=== PATIENT | male | born 2000 | race Caucasian/White ===

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

== ENCOUNTER 2020-08-26 13:25 | Emergency (ER) | payer OTHER, BC ==
[2020-08-26 13:52] VITALS: BP 127/71; PULSE 89
[2020-08-26] MEDS ORDERED: Diphtheria,Pertussis(Acell),Tetanus Vaccine 0.5 ML Syringe IM ONE (14:17)
--- NOTE | 2020-08-26 14:28 | EDM.PDOC ---
ED HPI GENERAL MEDICAL PROBLEM - General Chief Complaint: Bite:Animal, Insect Stated Complaint: DOG BITE AT WORK Time Seen by Provider: 08/26/20 13:28 Source of Information: Reports: Patient History Limitations: Reports: No Limitations - History of Present Illness INITIAL COMMENTS - FREE TEXT/NARRATIVE: HISTORY AND PHYSICAL: History of present illness: Patient is a 19-year-old male who presents to the emergency department secondary to a dog bite on the right leg he sustained approximately 1 hour ago. 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 Patient reports that the dog did bite him on the right calf. Patient reports that he believes he is up-to-date on his immunizations but cannot quite recall receiving any vaccinations in the last couple years. Per law enforcement at bedside, the dog is up-to-date on rabies vaccine. Denies any other symptoms or concerns. Patient denies fever, chills, chest pain, shortness of breath, or cough. Denies headache, neck stiff ness, change in vision, syncope, or near syncope. Denies nausea, vomiting, abdominal pain, diarrhea, constipation, or dysuria. Has not noted any blood in urine or stool. Patient has been eating and drinking appropriately. Review of systems: As per history of present illness and below otherwise all systems reviewed and negative. Past medical history: As per history of present illness and as reviewed below otherwise noncontributory. Surgical history: As per history of present illness and as reviewed below otherwise noncontri butory. Social history: See social history for further information Family history: As per history of present illness and as reviewed below otherwise noncontributory. Physical exam: General: Patient is alert, oriented, and in no acute distress. Patient sitting comfortably on exam table. Vitals stable and reviewed by me HEENT: Atraumatic, normocephalic, pupils equal and reactive bilaterally, n egative for conjunctival pallor or scleral icterus, mucous membranes moist, TMs normal bilaterally, throat clear, neck supple, nontender, trachea midline. No drooling or trismus noted. No meningeal signs. No hot potato voice noted. Lungs: Clear to auscultation, breath sounds equal bilaterally, chest nontender. Heart: S1S2, regular rate and rhythm without overt murmur Abdomen: Soft, nondistended, nontender. Negative for masses or hepatosplenomegaly. Negative for costovertebral tenderness. Pelvis: Stable nontender. Genitourinary: Deferred. Rectal: Deferred. Skin: Intact, warm, dry. No lesions or rashes noted. Extremities: There is a 0.5 cm superficial laceration of the right medial mid lower right leg with hemostasis. Patient has full range of motion of the complete right lower extremity without pain or deficit. Intact sensation to light and deep touch of the complete right lower extremity. Dorsalis pedis and posterior tibial pulses are grossly intact of the right lower extremity with capillary refill less than 2 seconds. Otherwise, atraumatic, negative for cords or calf pain. Neurovascular unremarkable. Neuro: Awake, alert, oriented. Cranial nerves II through XII unremarkable. Cerebellum unremarkable. Motor and sensory unremarkable throughout. Exam nonfocal. Notes: Discussed signs and symptoms that would prompt return to the emergency department. Discussed importance of follow-up with primary care. Voices understanding and is agreeable to plan of care. Denies any further questions or concerns at this time. Diagnostics: None Therapeutics: tdap (dog is up to date on rabies per law enforcement) Prescription: Augmentin Impression: Dog bite, right lower extremity Plan: 1. Take medication as prescribed. You can alternate ibuprofen and Tylenol as directed for pain and discomfort. 2. Follow-up with primary care provider as discussed. Return to the ED as needed and as discussed. Definitive disposition and diagnosis as appropriate pending reevaluation and re view of above. Right leg Pain Score (Numeric/FACES): 4 - Related Data Allergies Allergy/AdvReac Type Severity Reaction Status Date / Time azithromycin Allergy Seizure Verified 08/26/20 13:46 [From Zithromax Z-Gregory] Home Meds: Home Meds Amoxicillin/Potassium Clav [Augmentin 875-125 Tablet] 1 each PO BID 7 Days #14 tablet 08/26/20 [Rx] lamoTRIgine [LaMICtal] 150 mg PO DAILY 08/26/20 [History] Past Medical History - Past Health History Medical/Surgical History: Denies Medical/Surgical History HEENT History: Reports: None Neurological History: Reports: Seizure Other Neuro History: Epilepsy Hematologic History: Reports: None Immunologic History: Reports: None - Infectious Disease History Infectious Disease History: Reports: None - Past Surgical History HEENT Surgical History: Reports: Tonsillectomy Social & Family History - Family History Family Medical History: No Pertinent Family History - Tobacco Use Tobacco Use Status *Q: Never Tobacco User - Caffeine Use Caffeine Use: Reports: None - Recreational Drug Use Recreational Drug Use: No ED ROS GENERAL - Review of Systems Review Of Systems: Comprehensive ROS is negative, except as noted in HPI. ED EXAM, ANIMAL BITE - Physical Exam Exam: See Below (see dictation) Course - Vital Signs Last Recorded V/S: Last Vital Signs Temp 98.4 F 08/26/20 13:48 Pulse 89 08/26/20 13:48 Resp 15 08/26/20 13:48 BP 127/71 08/26/20 13:48 Pulse Ox 97 08/26/20 13:48 - Orders/Labs/Meds Meds: Medications Discontinued Medications Generic Name Dose Route Start Last Admin Trade Name Freq PRN Reason Stop Dose Admin Diphtheria/Tetanus/Acell Pertussis 0.5 ml 08/26/20 14:17 08/26/20 14:30 Diphtheria,Pertussis(Acell),Tetanus Vaccine 0.5 Ml Syringe IM 08/26/20 14:18 0.5 ml .ONCE ONE Administration Departure - Departure Time of Disposition: 15:55 Disposition: Home, Self-Care 01 Clinical Impression: Dog bite Qualifiers: Encounter type: initial encounter Qualified Code(s): W54.0XXA - Bitten by dog, initial encounter - Discharge Information Prescriptions: Amoxicillin/Potassium Clav [Augmentin 875-125 Tablet] 1 each PO BID 7 Days #14 tablet Instructions: Animal Bite, Adult, [id number] Referrals: PCP,None [Primary Care Provider] - Forms: ED Department Discharge Additional Instructions: The following information is given to patients seen in the emergency department who are being discharged to home. This information is to outline your options for follow-up care. We provide all patients seen in our emergency department with a follow-up referral. The need for follow-up, as well as the timing and circumstances, are variable depending upon the specifics of your emergency department visit. If you don't have a primary care physician on staff, we will provide you with a referral. We always advise you to contact your personal physician following an emergency department visit to inform them of the circumstance of the visit and for follow-up with them and/or the need for any referrals to a consulting specialist. The emergency department will also refer you to a specialist when appropriate. This referral assures that you have the opportunity for follow-up care with a specialist. All of these measure are taken in an effort to provide you with optimal care, which includes your follow-up. Under all circumstances we always encourage you to contact your private physician who remains a resource for coordinating your care. When calling for follow-up care, please make the office aware that this follow-up is from your recent emergency room visit. If for any reason you are refused follow-up, please contact the [facility] Emergency Department at and asked to speak to the emergency department charge nurse. [facility] Primary [facility] [address] [place] [id number] [facility] [address] [place] [id number] 1. Take medication as prescribed. You can alternate ibuprofen and Tylenol as directed for pain and discomfort. 2. Follow-up with primary care provider as discussed. Return to the ED as needed and as discussed. Sepsis Event Note (ED) - Evaluation Sepsis Screening Result: No Definite Risk - Focused Exam Vital Signs: Vital Signs Temp Pulse Resp BP Pulse Ox 08/26/20 13:48 98.4 F 89 15 127/71 97
== END 2020-08-26 15:59 | disposition home or self-care (01) ==
LOC: MW.ED 13:25
DX: S81.851A Open bite, right lower leg, initial encounter (principal); Z88.1 Allergy status to other antibiotic agents; Z23 Encounter for immunization; W54.0XXA Bitten by dog, initial encounter; Y99.0 Civilian activity done for income or pay
CPT/HCPCS: 90471; 90715; 99283; 99283-25

== ENCOUNTER 2021-03-06 19:49 | Emergency (ER) | payer BC ==
[2021-03-06] MEDS ORDERED: Sodium Chloride 0.9% 1,000 ML IV ONE (21:12)
[2021-03-06] MEDS ORDERED: Pantoprazole 40 MG/10 ML Syringe IVPUSH ONE (21:12)
[2021-03-06] MEDS ORDERED: Sucralfate 1 GM Tab PO ONE (21:12)
[2021-03-06] MEDS ORDERED: Ondansetron 4 MG/2 ML SDV IVPUSH ONE (21:12)
--- NOTE | 2021-03-06 21:22 | EDM.PDOC ---
<Sandeep Villegas - Last Filed: 03/06/21 23:46> ED HPI GENERAL MEDICAL PROBLEM - General Chief Complaint: Abdominal Pain Stated Complaint: COUGH, VOMITTING, HEADACHE Time Seen by Provider: 03/06/21 19:50 - Related Data Allergies Allergy/AdvReac Type Severity Reaction Status Date / Time azithromycin Allergy Seizure Verified 03/06/21 20:01 [From Zithromax Z-Gregory] Home Meds: Home Meds lamoTRIgine [LaMICtal] 150 mg PO DAILY 08/26/20 [History] Omeprazole Magnesium [Prilosec Otc] 20 mg PO BID #30 tablet. 03/06/21 [Rx] Course - Re-Assessments/Exams Free Text/Narrative Re-Assessment/Exam: 03/06/21 22:00 This patient was signed out to Dr Villegas from [facility] at this time. I promptly performed a detailed physical examination, my examination was performed after ED treatments were initiated by the signout provider. Patient has been under the care of the previous provider up until this point. 03/06/21 23:47 After observation in the ER, the patient improved and is currently stable for discharge. I performed a repeat exam and did not appreciate new abnormal findings. Patient exhibits normal vital signs and has a normal gait on road test. I advised the patient to return to the ER for reevaluation if symptoms worsened, including fever, worsening pain, or any other worrisome symptoms. I instructed the patient to follow up with their PCP within 2-3 days. Departure - Departure Time of Disposition: 23:48 Disposition: Home, Self-Care 01 Condition: Good Clinical Impression: Peptic ulcer disease, Upper respiratory infection, viral Abdominal pain Qualifiers: Abdominal location: lower abdomen, unspecified Qualified Code(s): R10.30 - Lower abdominal pain, unspecified - Discharge Information *PRESCRIPTION DRUG MONITORING PROGRAM REVIEWED*: Not Applicable *COPY OF PRESCRIPTION DRUG MONITORING REPORT IN PATIENT KEYSHA: Not Applicable Prescriptions: Omeprazole Magnesium [Prilosec Otc] 20 mg PO BID #30 tablet. Instructions: Peptic Ulcer, [id number], Viral Respiratory Infection, [id number], Abdominal Pain, Adult, [id number] Referrals: PCP,None [Primary Care Provider] - Forms: ED Department Discharge Additional Instructions: The need for follow-up, as well as the timing and circumstances, are variable depending upon the specifics of your emergency department visit. If you don't have a primary care physician on staff, we will provide you with a referral. We always advise you to contact your personal physician following an emergency department visit to inform them of the circumstance of the visit and for follow-up with them and/or the need for any referrals to a consulting specialist. The emergency department will also refer you to a specialist when appropriate. This referral assures that you have the opportunity for follow-up care with a specialist. All of these measure are taken in an effort to provide you with optimal care, which includes your follow-up. Under all circumstances we always encourage you to contact your private physician who remains a resource for coordinating your care. When calling for follow-up care, please make the office aware that this follow-up is from your recent emergency room visit. If for any reason you are refused follow-up, please contact the [facility] Emergency Department at and asked to speak to the emergency department charge nurse. If you do not have a primary care doctor, please follow up with the clinics below within 3-5 days. [facility] [address] [place] [address] [place] [address] <Barbara Koch - Last Filed: 03/07/21 16:05> ED HPI GENERAL MEDICAL PROBLEM - General Source of Information: Reports: Patient History Limitations: Reports: No Limitations - History of Present Illness INITIAL COMMENTS - FREE TEXT/NARRATIVE: HISTORY AND PHYSICAL: History of present illness: Patient is a 20-year-old otherwise healthy male who presents emergency room today with concern of nausea, vomiting, and abdominal pain. Patient states that he has been having the symptoms but they have been coming and going since the last week of January. However, patient states that now over the past 7 days, the pain has been constant, and getting worse, and states he has not been able to tolerate much for oral intake. Patient states that he has been consistently vomiting every day and states that he went from 150 pounds to now 120 pounds since the end of January. Patient states that he did have an episode of coffee-ground emesis this morning and this prompted him to be seen and evaluated today. Patient states he also started having secondary symptoms over the past 4 days including sore throat, cough, fever/chills and states that he feels this is different than the stomach issues he has been having. Patient states that he did have Covid a year ago and thought that yesterday maybe he was having Covid again. Patient states he was tested at a walk-in clinic with a rapid test and was told that it was negative. Patient states that now having the coffee-ground emesis today, along with the worsening symptoms, he was concerned so came to the emergency room for further evaluation. Patient has not had any abdominal surgeries. Patient states he believes that he has had a fever at home but has not documented this. Patient states he has had chills and feels feverish. Patient denies chest pain, shortness of breath. Denies headache, neck stiff ness, change in vision, syncope, or near syncope. Denies diarrhea, constipation, or dysuria. Has not noted any blood in urine or stool. Review of systems: As per history of present illness and below otherwise all systems reviewed and negative. Past medical history: As per history of present illness and as reviewed below otherwise nonco ntributory. Surgical history: As per history of present illness and as reviewed below otherwise noncontributory. Social history: See social history for further information Family history: As per history of present illness and as reviewed below otherwise noncontributory. Physical exam: General: Patient is alert, oriented, and in no acute distress. Patient sitting comfortably on exam table. Patient is tired appearing. He does have chills on exam and is wearing a sweatshirt along with a parka/zipped up winter jacket with a hat and gloves. He is shivering on exam. Temp is 99.8 orally, otherwise vitally stable and reviewed by me. HEENT: Atraumatic, normocephalic, pupils equal and reactive bilaterally, negative for conjunctival pallor or scleral icterus, mucous membranes moist, throat dry, neck supple, nontender, trachea midline. No drooling or trismus noted. No meningeal signs. No hot potato voice noted. Lungs: Dry cough on exam. Clear to auscultation, breath sounds equal bilate rally, chest nontender. Heart: S1S2, regular rate and rhythm without overt murmur Abdomen: Soft, nondistended, moderate periumbilical tenderness with guarding. Negative for masses or hepatosplenomegaly. Negative for costovertebral tenderness. Pelvis: Stable nontender. Genitourinary: Deferred. Rectal: Deferred. Skin: Intact, warm, dry. No lesions or rashes noted. Extremities: Atraumatic, negative for cords or calf pain. Neurovascular unremarkable. Neuro: Awake, alert, oriented. Cranial nerves II through XII unremarkable. Cerebellum unremarkable. Motor and sensory unremarkable throughout. Exam n onfocal. Medical Decision Making: Patient is an otherwise healthy 20-year-old male who presents emergency room today with concern of nausea, vomiting, and abdominal pain that has been coming and going over the past 3 to 4 weeks, now becoming constant over the past 1 week with difficulties tolerating p.o. intake and weight loss. Patient also presents with 4-day history of sore throat, cough, fever and chills. Upon arrival to the ED, patient is alert and oriented, however he does have a sweatshirt, a winter parka on exam and is shivering. Oral temp is 99.8 and patient is otherwise vitally stable. His mucous membranes are significantly dry on exam, concerning for clinical dehydration and patient does have moderate periumbilical tenderness with guarding. There is a concern that patient may have had coffee-ground emesis this morning. He is not actively dry heaving or vomiting on exam at this time. Given patient's abdominal pain, clinical dehydration, will obtain IV access, provide fluid bolus, obtain lab work with plan to scan abdomen pelvis CT. Will also provide therapeutics at this time. Dr. Villegas has assumed care of patient following all diagnostics and disposition. Diagnostics: CBC, CMP, UA, Lipase, Abd/Pelvic CT w cont, COVID/Flu, Strep, Hitchcock, CXR Therapeutics: NS, Protonix, Sucralfate, Zofran Prescription: Impression: Periumbilical abdominal pain Nausea and vomiting Dehydration Cough Plan: Definitive disposition and diagnosis as appropriate pending reevaluation and review of above. Abdomen Pain Score (Numeric/FACES): 7 Past Medical History - Past Health History Medical/Surgical History: Denies Medical/Surgical History HEENT History: Reports: None Neurological History: Reports: Seizure Other Neuro History: Epilepsy Hematologic History: Reports: None Immunologic History: Reports: None - Infectious Disease History Infectious Disease History: Reports: None - Past Surgical History HEENT Surgical History: Reports: Tonsillectomy Social & Family History - Family History Family Medical History: No Pertinent Family History - Caffeine Use Caffeine Use: Reports: None ED ROS GENERAL - Review of Systems Review Of Systems: Comprehensive ROS is negative, except as noted in HPI. ED EXAM, GENERAL - Physical Exam Exam: See Below (see dictation) Course - Vital Signs Last Recorded V/S: Last Vital Signs Temp Pulse 93 03/07/21 00:03 Resp 17 03/07/21 00:03 BP 131/82 03/07/21 00:03 Pulse Ox 98 03/07/21 00:03 - Orders/Labs/Meds Labs: Laboratory Tests 03/06/21 03/06/21 03/06/21 Range/Units 20:08 21:20 21:20 WBC 3.12 L (4.0-11.0) K/uL RBC 5.29 (4.50-5.90) M/uL Hgb 16.7 (13.0-17.0) g/dL Hct 46.5 (38.0-50.0) % MCV 87.9 (80.0-98.0) fL MCH 31.6 (27.0-32.0) pg MCHC 35.9 (31.0-37.0) g/dL RDW Std Deviation 40.9 (28.0-62.0) fl RDW Coeff of Tony 13 (11.0-15.0) % Plt Count 162 (150-400) K/uL MPV 11.50 (7.40-12.00) fL Add Manual Diff YES Neutrophils % (Manual) 51 (48.0-80.0) % Lymphocytes % (Manual) 30 (16.0-40.0) % Monocytes % (Manual) 18 H (0.0-15.0) % Eosinophils % (Manual) 1 (0.0-7.0) % Nucleated RBC % 0.0 /100WBC Absolute Seg Neuts 1.6 (1.4-5.7) Lymphocytes # (Manual) 0.9 (0.6-2.4) Monocytes # (Manual) 0.6 (0.0-0.8) Eosinophils # (Manual) 0.0 (0.0-0.7) Nucleated RBCs # 0 K/uL Sodium 140 (136-148) mmol/L Potassium 3.4 L (3.5-5.1) mmol/L Chloride 101 (98-107) mmol/L Carbon Dioxide 29.6 (21.0-32.0) mmol/L BUN 17 (7.0-18.0) mg/dL Creatinine 0.8 (0.8-1.3) mg/dL Est Cr Clr Drug Dosing TNP Estimated GFR (MDRD) > 60.0 ml/min Glucose 96 (74-106) mg/dL Calcium 9.2 (8.5-10.1) mg/dL Total Bilirubin 0.6 (0.2-1.0) mg/dL AST 24 (15-37) IU/L ALT 27 (14-63) IU/L Alkaline Phosphatase 96 (46-116) U/L Total Protein 9.4 H (6.4-8.2) g/dL Albumin 4.7 (3.4-5.0) g/dL Globulin 4.7 H (2.6-4.0) g/dL Albumin/Globulin Ratio 1.0 (0.9-1.6) Lipase 34 L (73-393) U/L Urine Color Urine Appearance Urine pH (5.0-8.0) Ur Specific [place] (1.001-1.035) Urine Protein (NEGATIVE) mg/dL Urine Glucose (UA) (NEGATIVE) mg/dL Urine Ketones (NEGATIVE) mg/dL Urine Occult Blood (NEGATIVE) Urine Nitrite (NEGATIVE) Urine Bilirubin (NEGATIVE) Urine Urobilinogen (<2.0) EU/dL Ur Leukocyte Esterase (NEGATIVE) Urine RBC (0-2/HPF) Urine WBC (0-5/HPF) Ur Epithelial Cells (NONE-FEW) Urine Bacteria (NEGATIVE) Monoscreen (NEG) Influenza Type A RNA NEGATIVE (NEGATIVE) Influenza Type B RNA NEGATIVE (NEGATIVE) SARS-CoV-2 RNA (JOSE) NEGATIVE (NEGATIVE) Group A Strep (PCR) (NOT DETECT) 03/06/21 03/06/21 03/06/21 Range/Units 21:20 21:20 21:30 WBC (4.0-11.0) K/uL RBC (4.50-5.90) M/uL Hgb (13.0-17.0) g/dL Hct (38.0-50.0) % MCV (80.0-98.0) fL MCH (27.0-32.0) pg MCHC (31.0-37.0) g/dL RDW Std Deviation (28.0-62.0) fl RDW Coeff of Tony (11.0-15.0) % Plt Count (150-400) K/uL MPV (7.40-12.00) fL Add Manual Diff Neutrophils % (Manual) (48.0-80.0) % Lymphocytes % (Manual) (16.0-40.0) % Monocytes % (Manual) (0.0-15.0) % Eosinophils % (Manual) (0.0-7.0) % Nucleated RBC % /100WBC Absolute Seg Neuts (1.4-5.7) Lymphocytes # (Manual) (0.6-2.4) Monocytes # (Manual) (0.0-0.8) Eosinophils # (Manual) (0.0-0.7) Nucleated RBCs # K/uL Sodium (136-148) mmol/L Potassium (3.5-5.1) mmol/L Chloride (98-107) mmol/L Carbon Dioxide (21.0-32.0) mmol/L BUN (7.0-18.0) mg/dL Creatinine (0.8-1.3) mg/dL Est Cr Clr Drug Dosing Estimated GFR (MDRD) ml/min Glucose (74-106) mg/dL Calcium (8.5-10.1) mg/dL Total Bilirubin (0.2-1.0) mg/dL AST (15-37) IU/L ALT (14-63) IU/L Alkaline Phosphatase (46-116) U/L Total Protein (6.4-8.2) g/dL Albumin (3.4-5.0) g/dL Globulin (2.6-4.0) g/dL Albumin/Globulin Ratio (0.9-1.6) Lipase (73-393) U/L Urine Color YELLOW Urine Appearance CLEAR Urine pH 6.0 (5.0-8.0) Ur Specific [place] 1.020 (1.001-1.035) Urine Protein TRACE H (NEGATIVE) mg/dL Urine Glucose (UA) NEGATIVE (NEGATIVE) mg/dL Urine Ketones NEGATIVE (NEGATIVE) mg/dL Urine Occult Blood NEGATIVE (NEGATIVE) Urine Nitrite NEGATIVE (NEGATIVE) Urine Bilirubin NEGATIVE (NEGATIVE) Urine Urobilinogen 0.2 (<2.0) EU/dL Ur Leukocyte Esterase NEGATIVE (NEGATIVE) Urine RBC 0-1 (0-2/HPF) Urine WBC 0-1 (0-5/HPF) Ur Epithelial Cells RARE (NONE-FEW) Urine Bacteria RARE (NEGATIVE) Monoscreen NEGATIVE (NEG) Influenza Type A RNA (NEGATIVE) Influenza Type B RNA (NEGATIVE) SARS-CoV-2 RNA (JOSE) (NEGATIVE) Group A Strep (PCR) NOT DETECTED (NOT DETECT) Meds: Medications Discontinued Medications Generic Name Dose Route Start Last Admin Trade Name Freq PRN Reason Stop Dose Admin Sodium Chloride 1,000 mls @ 999 mls/hr 03/06/21 21:12 03/06/21 21:24 Normal Saline IV 03/06/21 22:12 999 mls/hr BOLUS ONE Administration Iopamidol 100 ml 03/06/21 22:28 03/06/21 22:29 Iopamidol 755 Mg/Ml 500 Ml Multipack Bottle IVPUSH 03/06/21 22:29 100 ml ONETIME STA Administration Ondansetron HCl 4 mg 03/06/21 21:12 03/06/21 21:25 Ondansetron 4 Mg/2 Ml Sdv IVPUSH 03/06/21 21:13 4 mg ONETIME ONE Administration Pantoprazole Sodium 80 mg 03/06/21 21:12 03/06/21 21:25 Pantoprazole 40 Mg/10 Ml Syringe IVPUSH 03/06/21 21:13 80 mg ONETIME ONE Administration Sucralfate 1 gm 03/06/21 21:12 03/06/21 21:27 Sucralfate 1 Gm Tab PO 03/06/21 21:13 1 gm ONETIME ONE Administration Sepsis Event Note (ED) - Evaluation Sepsis Screening Result: No Definite Risk
[2021-03-06 21:40] LABS: CORONAVIRUS COVID-19 NAA NEGATIVE (NEGATIVE); INFLUENZA A NAA NEGATIVE (NEGATIVE); INFLUENZA B NAA NEGATIVE (NEGATIVE)
[2021-03-06 21:50] LABS: BLOOD UREA NITROGEN,BUN 17 mg/dL (7.0-18.0); CARBON DIOXIDE,CO2 29.6 mmol/L (21.0-32.0); CHLORIDE,CL 101 mmol/L (98-107); GLUCOSE RANDOM 96 mg/dL (74-106); LIPASE 34 U/L (73-393); POTASSIUM,K 3.4 mmol/L (3.5-5.1); SODIUM,NA 140 mmol/L (136-148)
--- NOTE | 2021-03-06 22:06 | CR ---
INDICATION: Cough, fever, vomiting TECHNIQUE: Chest radiograph 1 view COMPARISON: 06/02/2016 FINDINGS: Mediastinum: The mediastinum is normal in appearance. The heart silhouette is normal in size and morphology. Lung: Both lungs are unremarkable in appearance. No sign of pleural effusion seen. No pneumothorax is identified. Bone and Soft tissue: Unremarkable for age. IMPRESSION: 1. No acute cardiopulmonary disease is seen. Dictated by: Anam Kamara MD @ 03/06/2021 22:05:43 (Electronically Signed)
[2021-03-06] MEDS ORDERED: Iopamidol 755 MG/ML 500 ML Multipack Bottle IVPUSH STA (22:28)
--- NOTE | 2021-03-06 23:07 | CT ---
INDICATION: Periumbilical pain and fevers. TECHNIQUE: Volumetric helical scanning of the abdomen and pelvis was performed with 100 cc of Isovue 370 contrast material IV. Coronal and sagittal reconstructions were obtained. COMPARISON: Abdomen/pelvis CT of 12/06/2017. FINDINGS: The appendix is not identified with certainty but was seen on the prior study. No pericecal inflammatory changes identified to suggest acute appendicitis. The bowel is otherwise unremarkable. The liver, bile ducts, spleen, adrenal glands and pancreas are negative. Mildly enlarged right renal calices are again demonstrated. The kidneys are otherwise unremarkable. No lymphadenopathy or free fluid is demonstrated. 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 No sinus connecting with the umbilicus is evident. The bladder is otherwise unremarkable. The prostate is negative. The lung bases are clear, and the heart size is normal. IMPRESSION: 1. Etiology of periumbilical pain and fevers not clearly evident. 2. Appendix not visualized but no pericecal inflammatory change apparent. 3. Apparent urachal diverticulum. No sinus tract to the umbilicus evident. 4. Mildly enlarged right renal calices, as before. Please note that all CT scans at this facility use dose modulation, iterative reconstruction, and/or weight-based dosing when appropriate to reduce radiation dose to as low as reasonably achievable. Dictated by Elias Carson MD @ 03/06/2021 11:06:56 PM (Electronically Signed)
[2021-03-07 00:04] VITALS: BP 131/82; PULSE 93
== END 2021-03-07 00:04 | disposition home or self-care (01) ==
LOC: MW.ED 19:49
DX: K27.9 Peptic ulcer, site unspecified, unspecified as acute or chronic, without hemorrhage or perforation (principal); J06.9 Acute upper respiratory infection, unspecified; E86.0 Dehydration; R11.2 Nausea with vomiting, unspecified; Z88.1 Allergy status to other antibiotic agents; Z79.899 Other long term (current) drug therapy; Z20.822 Contact with and (suspected) exposure to COVID-19
CPT/HCPCS: 0240U; 36415; 71045; 74177; 80053; 81001; 83690; 85025; 86308; 87651; 96374; 96375; 99284; A9270; C9113; J2405; J7030; Q9967

== ENCOUNTER 2021-05-15 15:18 | Emergency (ER) | payer BC ==
[2021-05-15] MEDS ORDERED: Sodium Chloride 0.9% 2.5 ML Syringe FLUSH PRN (16:02)
[2021-05-15] MEDS ORDERED: Dicyclomine 10 MG Cap PO ONE (16:02)
[2021-05-15] MEDS ORDERED: Sodium Chloride 0.9% 10 ML Syringe FLUSH PRN (16:02)
[2021-05-15] MEDS ORDERED: Sodium Chloride 0.9% 1,000 ML IV ONE (16:02)
[2021-05-15] MEDS ORDERED: Ondansetron 4 MG/2 ML SDV IVPUSH ONE (16:02)
[2021-05-15] MEDS ORDERED: Alum Hydro/Mag Hydro/Simeth XS 15 ML, Lidocaine 2% 5 ML PO ONE ×2 (16:04)
[2021-05-15 16:51] LABS: BLOOD UREA NITROGEN,BUN 20 mg/dL (7.0-18.0); CARBON DIOXIDE,CO2 24.9 mmol/L (21.0-32.0); CHLORIDE,CL 100 mmol/L (98-107); GLUCOSE RANDOM 93 mg/dL (74-106); LIPASE 50 U/L (73-393); POTASSIUM,K 3.5 mmol/L (3.5-5.1); SODIUM,NA 142 mmol/L (136-148)
[2021-05-15 18:26] VITALS: BP 114/76; PULSE 67
== END 2021-05-15 18:25 | disposition home or self-care (01) ==
LOC: MW.ED 15:18
DX: K29.70 Gastritis, unspecified, without bleeding (principal); R11.2 Nausea with vomiting, unspecified; Z79.899 Other long term (current) drug therapy; Z88.1 Allergy status to other antibiotic agents
CPT/HCPCS: 36415; 74176; 80053; 83690; 85025; 96374; 99284; A9270; J2405; J7030; 99283

== ENCOUNTER 2024-01-14 13:40 | Emergency (ER) | payer BC ==
[2024-01-14 14:02] LABS: BASOPHILS ABSOLUTE AUTO 0.03 K/uL (0.00-0.20); BASOPHILS PERCENT AUTO 0.6 % (0.0-1.0); EOSINOPHILS ABSOLUTE AUTO 0.14 K/uL (0.00-0.45); HEMATOCRIT 45.7 % (42.0-52.0); HEMOGLOBIN 16.2 g/dL (14.0-18.0); IMMATURE GRAN ABSOLUTE AUTO 0.02 K/uL (0.00-0.05); IMMATURE GRAN PERCENT AUTO 0.4 % (0.0-0.4); LYMPHOCYTES ABSOLUTE AUTO 1.39 K/uL (1.00-4.80); MEAN CORPUSCULAR HEMOGLOBIN 31.3 pg (28.0-32.0); MEAN CORPUSCULAR HGB CONC 35.4 g/dL (32.0-36.0); MEAN CORPUSCULAR VOLUME 88.2 fL (83.0-99.0); MEAN PLATELET VOLUME 9.9 fL (9.4-12.4); MONOCYTES ABSOLUTE AUTO 0.26 K/uL (0.00-0.80); MONOCYTES PERCENT AUTO 5.6 % (0.0-8.0); NEUTROPHILS PERCENT AUTO 60.4 % (41.0-71.0); PLATELET COUNT,PLT 215 K/uL (150-400); RED BLOOD CELL COUNT 5.18 M/uL (4.52-5.90); WHITE BLOOD CELL COUNT,WBC 4.64 K/uL (3.9-11.3)
[2024-01-14] MEDS: Acetaminophen 500 MG Tab PO STA (14:29)
[2024-01-14] MEDS: Metoclopramide 10 MG/2 ML SDV IVPUSH STA (14:30)
[2024-01-14] MEDS: diphenhydrAMINE 50 MG/ML SDV IVPUSH STA (14:30)
[2024-01-14 14:43] LABS: A/G RATIO 1.1 (0.9-1.6); ALBUMIN 4.4 g/dL (3.4-5.0); BILIRUBIN TOTAL 0.4 mg/dL (0.2-1.0); CALCIUM 9.6 mg/dL (8.5-10.1); CARBON DIOXIDE,CO2 23.5 mmol/L (21.0-32.0); EST CRCL DRUG DOSING (CG) 95.82 mL/min; MAGNESIUM 2.1 mg/dL (1.8-2.4); PROTEIN TOTAL,TP 8.5 g/dL (6.4-8.2)
[2024-01-14 15:06] LABS: C-REACTIVE PROTEIN 0.05 mg/dL (<0.3)
[2024-01-14] MEDS: oxyCODONE 5 MG Tab PO STA (15:29)
[2024-01-14 17:54] VITALS: BP 112/86; PULSE 70
[2024-01-17 18:03] LABS: LAMOTROGINE <0.9 ug/mL (3.0-15.0)
== END 2024-01-14 17:57 | disposition home or self-care (01) ==
LOC: MW.ED 13:40
DX: G40.909 Epilepsy, unspecified, not intractable, without status epilepticus (principal); Z88.1 Allergy status to other antibiotic agents; Z75.8 Other problems related to medical facilities and other health care
CPT/HCPCS: 36415; 70450; 70486; 71045; 80053; 80175; 82947; 83735; 84484; 85025; 85652; 86140; 93005; 96374; 96375; 99285; A9270; J1200; J2765; 93010; 99284